=== PATIENT | female | born 1970 | race Hispanic/Latino ===

== ENCOUNTER 2021-10-02 13:57 | Inpatient (IN) | payer OTHER ==
[~2021-10-02] VITALS: Ht 154.9 cm; Wt 108.7 kg
[2021-10-02 14:44] LABS: BASOPHILS % 0.4 % (0.0-1.0); EOSINOPHILS # (AUTO) 0.4 (0.0-0.4); EOSINOPHILS % 4.9 % (0.0-6.0); HEMATOCRIT 25.9 % (34.2-44.1); HEMOGLOBIN 8.1 g/dL (12.0-16.0); LYMPHOCYTES # (AUTO) 1.3 (1.0-3.2); LYMPHOCYTES % 17.7 % (18.0-39.1); MEAN CORPUSCULAR HGB CONC 31.3 g/dL (31-35); MEAN CORPUSCULAR VOLUME 89.6 fL (81-99); MONOCYTES # (AUTO) 0.4 (0.2-0.8); MONOCYTES % 5.3 % (4.4-11.3); NEUTROPHILS # (AUTO) 5.1 (2.1-6.9); NEUTROPHILS % 71.3 % (38.7-80.0); PLATELET COUNT 249 x10e3/uL (140-360); RED BLOOD COUNT 2.89 x10e6/uL (3.6-5.1); RED CELL DISTRIBUTION WIDTH 14.7 % (11.7-14.4)
[2021-10-02 14:49] LABS: INR 1.05; PROTHROMBIN TIME 14.6 seconds (11.9-14.5)
[2021-10-02 14:57] LABS: ALBUMIN/GLOBULIN RATIO 0.8 (0.8-2.0); ANION GAP 17.8 mmol/L (8-16); CREATININE, SERUM 4.8 mg/dL (0.57-1.11); POTASSIUM 4.8 mmol/L (3.5-5.1)
[2021-10-02 14:59] LABS: CALCIUM 6.1 mg/dL (8.4-10.2)
[2021-10-02 15:03] LABS: CREATINE KINASE MB 2.5 ng/mL (0-5.0)
[2021-10-02] MEDS ORDERED: CALCIUM GLUCONATE 10% INJ 4.65 MEQ in SODIUM CHLORIDE 0.9% 50ML 50 ML IV ONE (15:30)
[2021-10-02 18:19] VITALS: BP 163/69
[2021-10-02 18:32] VITALS: BP 163/69
[2021-10-02] MEDS ORDERED: LOSARTAN POTASS50 MG (19:27)
[2021-10-02] MEDS ORDERED: LOKELMA10 GM (19:27)
[2021-10-02] MEDS ORDERED: FUROSEMIDE40 MG (19:27)
[2021-10-02] MEDS ORDERED: SODIUM BICARBO650 MG (19:27)
[2021-10-02] MEDS ORDERED: AMLODIPINE BESYL5 MG PO (19:27)
[2021-10-02] MEDS ORDERED: ATORVASTATIN CA80 MG (19:27)
[2021-10-02] MEDS ORDERED: VITAMIN D250 MCG (19:27)
[2021-10-02] MEDS ORDERED: COREG12.5 MG PO (19:27)
[2021-10-02] MEDS ORDERED: SYMBICORT 16010.2 GM (19:27)
[2021-10-02] MEDS ORDERED: LANTUS 3ML100 UNITS/ (19:27)
[2021-10-02] MEDS ORDERED: CLOPIDOGREL75 MG (19:27)
[2021-10-02] MEDS ORDERED: ALBUTEROL2.5 MG/3 M (19:27)
[2021-10-02] MEDS ORDERED: CITALOPRAM HBR20 MG (19:27)
[2021-10-02] MEDS ORDERED: ULTRAM 50MG50 MG (19:27)
[2021-10-02] MEDS ORDERED: TOUJEO SOL300 UNIT/1 (19:27)
[2021-10-02] MEDS ORDERED: LEVOTHYROXINE50 MCG PO (19:27)
[2021-10-02] MEDS ORDERED: PROAIR HFA INH8.5 GM (19:27)
[2021-10-02] MEDS ORDERED: ALLOPURINOL100 MG (19:27)
[2021-10-02] MEDS ORDERED: NOVOLOG MI100 UNIT/1 SC ×2 (19:30→19:33)
[2021-10-02] MEDS ORDERED: RESTASIS1 EACH (19:33)
[2021-10-02 20:06] VITALS: BP 170/82
[2021-10-03] MEDS ORDERED: ATORVASTATIN 20 MG TAB PO SCH
[2021-10-03] MEDS: SODIUM BICARBONATE 650 MG TAB PO SCH ×4 (00:41→21:14)
[2021-10-03 00:42] VITALS: BP 177/86
[2021-10-03] MEDS: METOPROLOL TARTRATE INJ 1 MG/ML VIAL IV PRN (00:42)
[2021-10-03 04:00] VITALS: BP 154/73
[2021-10-03] MEDS ORDERED: GABAPENTIN300 MG (05:29)
[2021-10-03 06:09] LABS: BASOPHILS % 0.4 % (0.0-1.0); EOSINOPHILS # (AUTO) 0.4 (0.0-0.4); EOSINOPHILS % 4.2 % (0.0-6.0); HEMATOCRIT 24.8 % (34.2-44.1); HEMOGLOBIN 7.4 g/dL (12.0-16.0); LYMPHOCYTES # (AUTO) 1.8 (1.0-3.2); LYMPHOCYTES % 21.5 % (18.0-39.1); MEAN CORPUSCULAR HEMOGLOBIN 27.5 pg (28-32); MEAN CORPUSCULAR HGB CONC 29.8 g/dL (31-35); MEAN CORPUSCULAR VOLUME 92.2 fL (81-99); MONOCYTES # (AUTO) 0.4 (0.2-0.8); MONOCYTES % 5.3 % (4.4-11.3); NEUTROPHILS # (AUTO) 5.7 (2.1-6.9); NEUTROPHILS % 68.4 % (38.7-80.0); PLATELET COUNT 225 x10e3/uL (140-360); RED BLOOD COUNT 2.69 x10e6/uL (3.6-5.1); RED CELL DISTRIBUTION WIDTH 14.6 % (11.7-14.4)
[2021-10-03 07:10] LABS: ANION GAP 15.5 mmol/L (8-16); CHOL/HDL RATIO 4.5 (3.0-3.6); CREATININE, SERUM 4.72 mg/dL (0.57-1.11); POTASSIUM 4.5 mmol/L (3.5-5.1)
[2021-10-03 07:24] LABS: CALCIUM 5.9 mg/dL (8.4-10.2)
[2021-10-03] MEDS: INSULIN ASPART 70/30 100 UNITS/ML VIAL SC SCH ×5 (07:30→21:28)
[2021-10-03] MEDS: LEVOTHYROXINE SODIUM 50 MCG TAB PO SCH (07:30)
[2021-10-03 07:58] VITALS: BP 146/68
[2021-10-03] MEDS ORDERED: SODIUM CHLORIDE 0.9% 250ML 250 ML ONE ×2 (08:23→13:08)
[2021-10-03] MEDS ORDERED: LIDOCAINE HCL 1% LOCAL INJ 20 ML VIAL ONE (08:23)
[2021-10-03] MEDS ORDERED: MIDAZOLAM HCL 2 MG/2 ML VIAL ONE (08:27)
[2021-10-03] MEDS ORDERED: FENTANYL CITRATE/PF 100MCG/2 ML INJ ONE (08:28)
[2021-10-03] MEDS ORDERED: HEPARIN SOD (PORCINE) 1000 UNIT/ML SDV ONE (08:28)
[2021-10-03] MEDS ORDERED: SODIUM CHLORIDE 0.9% 1000ML 2,000 ML ONE (09:36)
[2021-10-03] MEDS ORDERED: CALCIUM GLUCONATE 10% INJ 13.95 MEQ in SODIUM CHLORIDE 0.9% 100 ML 100 ML IV ONE (10:00)
[2021-10-03] MEDS ORDERED: MANNITOL 25% 12.5GM/50 ML VIAL IV PRN (10:15)
[2021-10-03] MEDS ORDERED: HEPARIN SOD (PORCINE) 1000 UNIT/ML SDV IV PRN (10:15)
[2021-10-03] MEDS ORDERED: SODIUM CHLORIDE 0.9% 1000ML 2,000 ML IV PRN (10:15)
[2021-10-03] MEDS: CARVEDILOL 12.5 MG TAB PO SCH ×2 (10:50→17:58)
[2021-10-03] MEDS: ALLOPURINOL 100 MG TAB PO SCH (10:50)
[2021-10-03] MEDS: CALCITRIOL 0.25 MCG CAP PO SCH (10:50)
[2021-10-03] MEDS: EPOETIN ALFA-EPBX 10,000 UNIT/ML VIAL SC SCH (10:50)
[2021-10-03] MEDS: CHOLECALCIFEROL 1,000 UNIT TAB PO SCH (10:50)
[2021-10-03 12:00] VITALS: BP 166/68
[2021-10-03] MEDS ORDERED: FUROSEMIDE INJ 100 MG in SODIUM CHLORIDE 0.9% 100 ML IV ONE (12:45)
[2021-10-03] MEDS ORDERED: DEXTROSE 50% SYRINGE 50 ML IV PRN ×2 (12:45→13:30)
[2021-10-03] MEDS ORDERED: FUROSEMIDE INJ 10 MG/ML 10 ML VIAL IV ONE (12:45)
[2021-10-03] MEDS: IRON SUCROSE 100 MG in SODIUM CHLORIDE 0.9% 100 ML 100 ML IV SCH (14:00)
[2021-10-03] MEDS: ONDANSETRON HCL INJ 2MG/ML 2ML 2 MG/ML VIAL IV PRN (14:58)
[2021-10-03] MEDS: INSULIN REGULAR, HUMAN 100 UNIT/1 ML SQ SCH ×2 (15:33→21:29)
[2021-10-03 15:39] VITALS: BP 145/65
[2021-10-03] MEDS ORDERED: SODIUM CHLORIDE 0.9% 1000ML 1,000 ML ONE (17:04)
[2021-10-03] MEDS: FUROSEMIDE 40 MG TAB PO SCH (17:58)
[2021-10-03] MEDS: ACETAMINOPHEN 325 MG TAB PO PRN ×2 (19:57→23:00)
[2021-10-03 20:00] VITALS: BP 185/73
[2021-10-03] MEDS: ATORVASTATIN 40 MG TAB PO SCH (21:14)
[2021-10-04] VITALS (8 sets, daily range): BP systolic 137–183; BP diastolic 62–82
[2021-10-04] MEDS: ACETAMINOPHEN 325 MG TAB PO PRN (05:52)
[2021-10-04] MEDS: FUROSEMIDE 40 MG TAB PO SCH ×2 (05:52→18:06)
[2021-10-04 06:34] LABS: BASOPHILS % 0.3 % (0.0-1.0); EOSINOPHILS # (AUTO) 0.3 (0.0-0.4); EOSINOPHILS % 3.4 % (0.0-6.0); HEMATOCRIT 24.6 % (34.2-44.1); HEMOGLOBIN 7.5 g/dL (12.0-16.0); LYMPHOCYTES # (AUTO) 1.5 (1.0-3.2); LYMPHOCYTES % 20.8 % (18.0-39.1); MEAN CORPUSCULAR HEMOGLOBIN 27.7 pg (28-32); MEAN CORPUSCULAR HGB CONC 30.5 g/dL (31-35); MEAN CORPUSCULAR VOLUME 90.8 fL (81-99); MONOCYTES # (AUTO) 0.6 (0.2-0.8); MONOCYTES % 7.6 % (4.4-11.3); NEUTROPHILS # (AUTO) 4.9 (2.1-6.9); NEUTROPHILS % 67.4 % (38.7-80.0); RED BLOOD COUNT 2.71 x10e6/uL (3.6-5.1); RED CELL DISTRIBUTION WIDTH 14.6 % (11.7-14.4)
[2021-10-04 07:09] LABS: ALBUMIN 2.4 g/dL (3.5-5.0); ALBUMIN/GLOBULIN RATIO 0.7 (0.8-2.0); ANION GAP 13.6 mmol/L (8-16); CREATININE, SERUM 3.62 mg/dL (0.57-1.11); MAGNESIUM 1.9 MG/DL (1.3-2.1); PHOSPHORUS 4.8 MG/DL (2.3-4.7); POTASSIUM 4.6 mmol/L (3.5-5.1)
[2021-10-04 07:12] LABS: CALCIUM 6.7 mg/dL (8.4-10.2); PLATELET COUNT 197 x10e3/uL (140-360)
[2021-10-04] MEDS: INSULIN REGULAR, HUMAN 100 UNIT/1 ML SQ SCH ×4 (07:30→20:51)
[2021-10-04] MEDS: INSULIN ASPART 70/30 100 UNITS/ML VIAL SC SCH ×4 (08:05→21:00)
[2021-10-04] MEDS: LEVOTHYROXINE SODIUM 50 MCG TAB PO SCH (08:05)
[2021-10-04] MEDS: ONDANSETRON HCL INJ 2MG/ML 2ML 2 MG/ML VIAL IV PRN (08:34)
[2021-10-04] MEDS: CARVEDILOL 12.5 MG TAB PO SCH ×3 (09:00→18:07)
[2021-10-04] MEDS: CHOLECALCIFEROL 1,000 UNIT TAB PO SCH (09:34)
[2021-10-04] MEDS: SODIUM BICARBONATE 650 MG TAB PO SCH ×3 (09:34→20:51)
[2021-10-04] MEDS: CALCITRIOL 0.25 MCG CAP PO SCH (09:34)
[2021-10-04] MEDS: ALLOPURINOL 100 MG TAB PO SCH (09:34)
[2021-10-04] MEDS: METOCLOPRAMIDE HCL 10 MG/2ML VIAL IV SCH ×3 (11:27→22:00)
[2021-10-04] MEDS: METOPROLOL TARTRATE INJ 1 MG/ML VIAL IV PRN (13:36)
[2021-10-04] MEDS: IRON SUCROSE 100 MG in SODIUM CHLORIDE 0.9% 100 ML 100 ML IV SCH (18:14)
[2021-10-04] MEDS: ATORVASTATIN 40 MG TAB PO SCH (20:51)
[2021-10-05] VITALS (8 sets, daily range): BP systolic 139–166; BP diastolic 57–73
[2021-10-05] MEDS: FUROSEMIDE 40 MG TAB PO SCH ×2 (05:39→17:56)
[2021-10-05] MEDS: METOCLOPRAMIDE HCL 10 MG/2ML VIAL IV SCH ×3 (05:39→21:05)
[2021-10-05] MEDS: LEVOTHYROXINE SODIUM 50 MCG TAB PO SCH (07:42)
[2021-10-05] MEDS: INSULIN REGULAR, HUMAN 100 UNIT/1 ML SQ SCH ×4 (08:30→20:55)
[2021-10-05] MEDS: INSULIN ASPART 70/30 100 UNITS/ML VIAL SC SCH ×4 (08:30→20:54)
[2021-10-05] MEDS: SODIUM BICARBONATE 650 MG TAB PO SCH ×2 (10:03→14:39)
[2021-10-05] MEDS: CHOLECALCIFEROL 1,000 UNIT TAB PO SCH (10:03)
[2021-10-05] MEDS: CARVEDILOL 12.5 MG TAB PO SCH ×2 (10:03→17:56)
[2021-10-05] MEDS: CALCITRIOL 0.25 MCG CAP PO SCH (10:03)
[2021-10-05] MEDS: ALLOPURINOL 100 MG TAB PO SCH (10:03)
[2021-10-05] MEDS: ACETAMINOPHEN 325 MG TAB PO PRN (11:40)
[2021-10-05] MEDS ORDERED: SODIUM CHLORIDE 0.9% 250ML 250 ML ONE (14:37)
[2021-10-05] MEDS ORDERED: HEPARIN SOD (PORCINE) 1000 UNIT/ML SDV IV PRN (17:00)
[2021-10-05] MEDS: IRON SUCROSE 100 MG in SODIUM CHLORIDE 0.9% 100 ML 100 ML IV SCH (17:56)
[2021-10-05] MEDS: ATORVASTATIN 40 MG TAB PO SCH (21:05)
[2021-10-06] VITALS: BP 129/54
[2021-10-06 05:54] LABS: BASOPHILS % 0.3 % (0.0-1.0); EOSINOPHILS # (AUTO) 0.3 (0.0-0.4); EOSINOPHILS % 2.6 % (0.0-6.0); HEMATOCRIT 25.6 % (34.2-44.1); HEMOGLOBIN 7.7 g/dL (12.0-16.0); LYMPHOCYTES # (AUTO) 1.6 (1.0-3.2); MEAN CORPUSCULAR HEMOGLOBIN 27.7 pg (28-32); MEAN CORPUSCULAR HGB CONC 30.1 g/dL (31-35); MEAN CORPUSCULAR VOLUME 92.1 fL (81-99); MONOCYTES # (AUTO) 0.6 (0.2-0.8); NEUTROPHILS % 75.5 % (38.7-80.0); PLATELET COUNT 192 x10e3/uL (140-360); RED BLOOD COUNT 2.78 x10e6/uL (3.6-5.1); RED CELL DISTRIBUTION WIDTH 14.5 % (11.7-14.4)
[2021-10-06] MEDS: FUROSEMIDE 40 MG TAB PO SCH ×2 (06:15→17:22)
[2021-10-06] MEDS: METOCLOPRAMIDE HCL 10 MG/2ML VIAL IV SCH ×3 (06:15→22:00)
[2021-10-06] MEDS ORDERED: SODIUM CHLORIDE 0.9% 250ML 500 ML IV PRN (06:30)
[2021-10-06] MEDS ORDERED: ALBUMIN 25% 12.5GM 0.25 GM/ML BTL IV PRN (06:30)
[2021-10-06] MEDS ORDERED: HEPARIN SOD (PORCINE) 1000 UNIT/ML SDV IV PRN (06:30)
[2021-10-06 06:35] LABS: ANION GAP 16.2 mmol/L (8-16); CALCIUM 7.1 mg/dL (8.4-10.2); CREATININE, SERUM 3.92 mg/dL (0.57-1.11); POTASSIUM 5.2 mmol/L (3.5-5.1)
[2021-10-06] MEDS: INSULIN ASPART 70/30 100 UNITS/ML VIAL SC SCH ×2 (07:30→11:18)
[2021-10-06] MEDS: LEVOTHYROXINE SODIUM 50 MCG TAB PO SCH (07:30)
[2021-10-06] MEDS: EPOETIN ALFA-EPBX 10,000 UNIT/ML VIAL SC SCH (11:16)
[2021-10-06] MEDS: ALLOPURINOL 100 MG TAB PO SCH (11:16)
[2021-10-06] MEDS: CALCITRIOL 0.25 MCG CAP PO SCH (11:16)
[2021-10-06] MEDS: INSULIN REGULAR, HUMAN 100 UNIT/1 ML SQ SCH ×4 (11:16→21:00)
[2021-10-06] MEDS: CARVEDILOL 12.5 MG TAB PO SCH ×2 (11:17→17:22)
[2021-10-06] MEDS: CHOLECALCIFEROL 1,000 UNIT TAB PO SCH (11:17)
[2021-10-06] MEDS: IRON SUCROSE 100 MG in SODIUM CHLORIDE 0.9% 100 ML 100 ML IV SCH (14:00)
[2021-10-06 20:00] VITALS: BP 147/65
[2021-10-06] MEDS: ATORVASTATIN 40 MG TAB PO SCH (21:13)
[2021-10-06 21:52] VITALS: BP 147/65
[2021-10-07] VITALS: BP 129/61
[2021-10-07 04:00] VITALS: BP 130/58
[2021-10-07 05:09] LABS: BASOPHILS % 0.3 % (0.0-1.0); EOSINOPHILS # (AUTO) 0.3 (0.0-0.4); EOSINOPHILS % 3.2 % (0.0-6.0); HEMATOCRIT 26.4 % (34.2-44.1); HEMOGLOBIN 8.1 g/dL (12.0-16.0); LYMPHOCYTES % 22.9 % (18.0-39.1); MEAN CORPUSCULAR HEMOGLOBIN 28.2 pg (28-32); MEAN CORPUSCULAR HGB CONC 30.7 g/dL (31-35); MONOCYTES # (AUTO) 0.6 (0.2-0.8); MONOCYTES % 7.4 % (4.4-11.3); NEUTROPHILS # (AUTO) 5.7 (2.1-6.9); NEUTROPHILS % 65.5 % (38.7-80.0); PLATELET COUNT 197 x10e3/uL (140-360); RED BLOOD COUNT 2.87 x10e6/uL (3.6-5.1); RED CELL DISTRIBUTION WIDTH 14.6 % (11.7-14.4)
[2021-10-07 05:47] LABS: ANION GAP 14.3 mmol/L (8-16); CALCIUM 10.2 mg/dL (8.4-10.2); CREATININE, SERUM 3.17 mg/dL (0.57-1.11); POTASSIUM 4.3 mmol/L (3.5-5.1)
[2021-10-07] MEDS: METOCLOPRAMIDE HCL 10 MG/2ML VIAL IV SCH ×3 (06:00→20:55)
[2021-10-07] MEDS: FUROSEMIDE 40 MG TAB PO SCH ×2 (06:36→16:39)
[2021-10-07] MEDS: LEVOTHYROXINE SODIUM 50 MCG TAB PO SCH (07:30)
[2021-10-07] MEDS: INSULIN REGULAR, HUMAN 100 UNIT/1 ML SQ SCH ×4 (07:30→20:28)
[2021-10-07 07:51] VITALS: BP 144/64
[2021-10-07] MEDS: CARVEDILOL 12.5 MG TAB PO SCH ×2 (08:41→16:39)
[2021-10-07] MEDS: CALCITRIOL 0.25 MCG CAP PO SCH (08:41)
[2021-10-07] MEDS: CHOLECALCIFEROL 1,000 UNIT TAB PO SCH (08:41)
[2021-10-07] MEDS: ALLOPURINOL 100 MG TAB PO SCH (08:41)
[2021-10-07 11:34] VITALS: BP 121/85
[2021-10-07] MEDS: IRON SUCROSE 100 MG in SODIUM CHLORIDE 0.9% 100 ML 100 ML IV SCH (13:26)
[2021-10-07] MEDS ORDERED: LOPERAMIDE HCL 2 MG CAP PO PRN (13:30)
[2021-10-07 15:53] VITALS: BP 176/68
[2021-10-07 20:00] VITALS: BP 172/66
[2021-10-07] MEDS: ATORVASTATIN 40 MG TAB PO SCH (20:27)
[2021-10-07] MEDS: METOPROLOL TARTRATE INJ 1 MG/ML VIAL IV PRN (20:30)
[2021-10-08] VITALS: BP 128/59
[2021-10-08 04:00] VITALS: BP 146/79
[2021-10-08] MEDS: FUROSEMIDE 40 MG TAB PO SCH (05:03)
[2021-10-08] MEDS: METOCLOPRAMIDE HCL 10 MG/2ML VIAL IV SCH (05:03)
[2021-10-08 05:37] LABS: BASOPHILS % 0.3 % (0.0-1.0); EOSINOPHILS # (AUTO) 0.4 (0.0-0.4); EOSINOPHILS % 3.9 % (0.0-6.0); HEMATOCRIT 25.9 % (34.2-44.1); HEMOGLOBIN 7.8 g/dL (12.0-16.0); LYMPHOCYTES # (AUTO) 2.1 (1.0-3.2); LYMPHOCYTES % 22.6 % (18.0-39.1); MEAN CORPUSCULAR HEMOGLOBIN 27.8 pg (28-32); MEAN CORPUSCULAR HGB CONC 30.1 g/dL (31-35); MEAN CORPUSCULAR VOLUME 92.2 fL (81-99); MONOCYTES # (AUTO) 0.7 (0.2-0.8); MONOCYTES % 7.5 % (4.4-11.3); NEUTROPHILS % 64.5 % (38.7-80.0); PLATELET COUNT 201 x10e3/uL (140-360); RED BLOOD COUNT 2.81 x10e6/uL (3.6-5.1); RED CELL DISTRIBUTION WIDTH 14.8 % (11.7-14.4)
[2021-10-08 05:52] LABS: ANION GAP 14.3 mmol/L (8-16); CALCIUM 7.2 mg/dL (8.4-10.2); CREATININE, SERUM 4.02 mg/dL (0.57-1.11); MAGNESIUM 1.9 MG/DL (1.3-2.1); PHOSPHORUS 4.5 MG/DL (2.3-4.7); POTASSIUM 4.3 mmol/L (3.5-5.1)
[2021-10-08] MEDS: LEVOTHYROXINE SODIUM 50 MCG TAB PO SCH (06:35)
[2021-10-08] MEDS: INSULIN REGULAR, HUMAN 100 UNIT/1 ML SQ SCH ×2 (07:30→11:07)
[2021-10-08 08:03] VITALS: BP 169/72
[2021-10-08] MEDS: CARVEDILOL 12.5 MG TAB PO SCH (08:30)
[2021-10-08] MEDS: CHOLECALCIFEROL 1,000 UNIT TAB PO SCH (08:34)
[2021-10-08] MEDS: ALLOPURINOL 100 MG TAB PO SCH (08:34)
[2021-10-08] MEDS: CALCITRIOL 0.25 MCG CAP PO SCH (08:34)
[2021-10-08 08:53] VITALS: BP 169/72
[2021-10-08] MEDS: EPOETIN ALFA-EPBX 10,000 UNIT/ML VIAL SC SCH (11:06)
[2021-10-08 11:28] VITALS: BP 151/75
[2021-10-08] MEDS ORDERED: ONDANSETRON HCL 4 MG ORAL DISINTEGRATING TAB PO PRN (14:15)
[2021-10-08] MEDS: IRON SUCROSE 100 MG in SODIUM CHLORIDE 0.9% 100 ML 100 ML IV SCH (14:22)
[2021-10-08] MEDS ORDERED: METOCLOPRAMIDE HCL 10 MG TAB PO SCH (14:30)
== END 2021-10-08 15:09 | disposition home or self-care (01) | DRG 673 ==
LOC: ER 14:48 → ERHOLD 15:47 → MED/SURG3 17:26
PROVIDERS: ADMIT Internal Medicine; ATTEND Internal Medicine
PROC: 0JH63XZ Insertion of Tunneled Vascular Access Device into Chest Subcutaneous Tissue and Fascia, Percutaneous Approach (ICD-10-PCS; principal; 2021-10-03)
PROC: 02HV33Z Insertion of Infusion Device into Superior Vena Cava, Percutaneous Approach (ICD-10-PCS; principal; 2021-10-03)
DX: I12.0 Hypertensive chronic kidney disease with stage 5 chronic kidney disease or end stage renal disease (principal); N18.6 End stage renal disease; N25.81 Secondary hyperparathyroidism of renal origin; E11.22 Type 2 diabetes mellitus with diabetic chronic kidney disease; Z99.2 Dependence on renal dialysis; Z79.899 Other long term (current) drug therapy; M10.9 Gout, unspecified; E78.5 Hyperlipidemia, unspecified; E03.9 Hypothyroidism, unspecified; I25.10 Atherosclerotic heart disease of native coronary artery without angina pectoris; D63.1 Anemia in chronic kidney disease; Z20.822 Contact with and (suspected) exposure to COVID-19; E83.51 Hypocalcemia; E87.70 Fluid overload, unspecified; Z79.4 Long term (current) use of insulin
CPT/HCPCS: 36415; 36558; 71045; 74470; 76937; 77001; 80048; 80053; 80061; 82550; 82553; 82948; 83036; 83735; 84100; 84484; 84550; 85025; 85610; 85730; 86704; 86705; 86706; 87350; 90962; 93005; 94799; 96360; 96372; 99152; 99153; 99284; C1769; C1892; J0610; J1644; J1756; J1815; J1817; J1940; J2001; J2150; J2250; J2405; J2765; J3010; J7030; J7050; U0002